=== PATIENT | female | born 1950 | race Caucasian/White ===

== ENCOUNTER 2017-06-04 11:55 | Inpatient (IN) | payer MEDICARE, OTHER ==
[~2017-06-04] VITALS: Ht 157.5 cm; Wt 84.4 kg
[~2017-06-04 11:55] MED LIST: ACAI500 MG PO; ASPIR-LOW81 MG PO; CALCIUM600 MG PO; FISH OIL 1,0001 EAC1 PO; KELP1 EACH PO; LEVOTHYROXINE75 MCG PO; NIACIN500 M1 PO; NORCO 7.5-3251 EACH PO; ULTRAM50 MG PO; VITAMIN D5000 UNIT PO
[2017-07-02] MEDS ORDERED: POTASSIUM99 M1 PO (15:22)
[2017-07-02] MEDS ORDERED: ADVIL200 MG PO (15:22)
[2017-07-02] MEDS ORDERED: HYDROCHLOROTHIA25 MG PO (15:23)
[2017-07-02] MEDS ORDERED: FISH OIL 1,0001 EACH PO (15:23)
[2017-07-02] MEDS ORDERED: VITAMIN D32000 UNI1 PO (15:23)
[2017-07-02] MEDS ORDERED: LOSARTAN POTAS100 MG PO (15:24)
[2017-07-02] MEDS ORDERED: LEVOTHYROXINE75 MCG PO (15:24)
[2017-07-02] MEDS ORDERED: VITAMIN B-50 C0.4 MG PO (15:25)
[2017-07-02] MEDS ORDERED: MAGNESIUM250 M1 PO (15:25)
[2017-07-02] MEDS ORDERED: LIPITOR10 MG PO (15:26)
[2017-07-02] MEDS ORDERED: ASPIR-LOW81 MG PO (15:26)
[2017-07-02] MEDS ORDERED: MELATONIN3 MG PO (15:27)
[2017-07-02] MEDS ORDERED: CO Q-10300 MG PO (15:27)
[2017-07-02] MEDS ORDERED: KELP1 EACH PO (15:27)
[2017-07-02] MEDS ORDERED: PRILOSEC OTC20 MG PO (15:28)
--- NOTE | 2017-07-11 10:31 | NUR ---
07/11/17 1031 Argelia Bryson 1019 PT ARRIVED IN PACU SLEEPY WITH NO C/O'S. GABRIEL PRESENT ON ARRIVAL WITH NEON YELLOW URINE. 1025 PT OCCASIONALLY ITCHING AT FACE. OXYGEN MASK REMOVED. SATS 95% ON RA.
--- NOTE | 2017-07-11 11:23 | NUR ---
pt arrived to floor from surgery. oriented to room and call light. pt denies pain. roberto in place. mo pad present. small amount of drainage on mo pad. will continue to monitor pt.
--- NOTE | 2017-07-11 14:01 | NUR ---
PATIENT SITTING UP IN BED. RN IN ROOM. NO OTHER NEEDS AT THIS TIME.
--- NOTE | 2017-07-11 15:51 | NUR ---
THIS AGRICULTURAL SCIENCE PROFESSOR ASSISTED RN WITH STANDING PATIENT. RN IN ROOM. PATIENT SITTING UP IN BED NOW. CALL LIGHT WITHIN REACH. NO OTHER NEEDS AT THIS TIME.
--- NOTE | 2017-07-11 15:52 | NUR ---
IN ROOM WITH PT. SAT PT AT EDGE OF BEDSIDE AND THEN TO STANDING POSITION. RESOURCE PARAPROFESSIONAL IN ROOM TO ASSIST. PT FELT LIGHTHEADED AND DIZZY BUT RECOVERED SLOWLY ONCE STANDING STILL. CHANGED DANIEL PAD WHILE PT WAS STANDING. SCANT AMOUNT OF SANGUINOUS DRAINAGE PRESENT. PT BACK TO BED. PT RATING PAIN 3/10 ONCE BACK IN BED. DENIES NEED FOR PAIN MEDICATION.
--- NOTE | 2017-07-11 17:28 | NUR ---
pt resting in bed eating dinner. rating pain 04/28. gave 1 tab norco 5/325 po.
--- NOTE | 2017-07-11 17:35 | NUR ---
PT HAD SURGERY TODAY. PT HAD SPINAL EPIDURAL. FULLY REGRESSED. GABRIEL IN PLACE. DANIEL PAD AND PACKING IN PLACE. SMALL AMOUNT OF DRAINAGE PRESENT ON DANIEL PAD. PT STOOD AT EDGE OF BED WITH ASSISTANCE. GABRIEL TO BE REMOVED IF ABLE TO AMBULATE IN AM.
--- NOTE | 2017-07-11 18:22 | NUR ---
PT UP AND AMBULATING IN ROOM WITH STANDBY ASSIST. PT STATED, "MY LEGS FEEL WEAK." RATED PAIN 3/10 IN ABDOMEN. DENIED NEED FOR FURTHER PAIN MEDICATION AT THIS TIME.
--- NOTE | 2017-07-11 18:38 | NUR ---
PATIENT SITTING UP IN BED. GABRIEL DRAINED. GARBAGE EMPTIED. VITALS AND I&Os DONE. PATIENT STATES SHE "FEELS SLIGHT DISCOMFORT, BUT MOSTLY ITCHY". RN NOTIFIED. CALL LIGHT WITHIN REACH. NO OTHER NEEDS AT THIS TIME.
--- NOTE | 2017-07-11 20:00 | NUR ---
RECEIVED REPORT AT 1900, FOUND PT IN BED. PT HAD NO NEEDS AND DENIED PAIN AT THAT TIME.
--- NOTE | 2017-07-11 22:00 | NUR ---
V/S ARE WDL, PT DENIES PAIN, PT HAS INTENSE ITCHING ALL OVER, SO FAR, 12.5MG IV BENADRYL WAS GIVEN. ABD SOUNDS ARE PRESENT, PT IS PASSING GAS, VAG BLEEDING IS MINIMAL SO FAR. URINE OUTPUT IS WDL. NO NEW CONCERNS AT THIS TIME. PT WAS EDUCATED ON DEEP BREATHING.
--- NOTE | 2017-07-12 | NUR ---
PT IS SLEEPING AT THIS TIME.
--- NOTE | 2017-07-12 02:00 | NUR ---
PT IS STILL ITCHING ALL OVER. I AM UNABLE TO GIVE HER ANY BENADRYL AT THIS TIME. PAIN IS 0/10.
--- NOTE | 2017-07-12 02:16 | NUR ---
VITALS AND I&OS DONE AND CHARTED. FRESH ICE WATER GIVEN. BEDSIDE TABLE AND CALL LIGHT WITHIN REACH.
--- NOTE | 2017-07-12 04:00 | NUR ---
PT IS SLEEPING.
--- NOTE | 2017-07-12 06:28 | NUR ---
V/S ARE WDL, PT HAS DENIED PAIN ALL SHIFT. PT HAD ITCHING FROM SPINAL AND HAS NEEDED PRN BENADRYL. ABD SOUNDS ARE PRESENT, PT IS PASSING GAS, THERE IS A SMALL AMOUNT OF BLOOD PRESENT ON PAD. URINE OUTPUT WITH GABRIEL WAS ADQUATE. PT AMBULATED TO BATHROOM AND BACK, GABRIEL D/C AT 0600. PT NEEDED SOME PRN O2 NC 2L WHILE SLEEPING THIS SHIFT. HER O2 SATS AT TIMES WERE 85-90% ON RA. NO NEW CONCERNS AT THIS TIME.
--- NOTE | 2017-07-12 08:58 | NUR ---
SET PATIENT'S SHOWER UP FOR HER ALSO GOT HER NEW ICE WATER 0810.
--- NOTE | 2017-07-12 09:53 | NUR ---
PATIENT VOIDING WELL WITH GOOD POST VOID RESIDUALS. NO COMPLAINTS OF APIN, ADMINISTERED 1 TAB NORCO AT BREAKFAST WITH FOOD. UP IN SHOWER NOW, APPEARS TO BE MOVING WELL.
[2017-07-12] MEDS ORDERED: TYLENOL325 MG PO (10:54)
--- NOTE | 2017-07-12 10:57 | NUR ---
MED REC COMPLETE
--- NOTE | 2017-07-12 12:09 | NUR ---
PATIENT AMBULATED IN HALLS, UP TO BATHROOM. CONTINUING POST VOID RESIDUALS, GOING WELL. PATIENT REQUESTED TO PUT OWN GOWN ON. CALL LIGHT WITHIN REACH, PATIENT INDEPENDANT IN ROOM. STATES " I AM FEELING OKAY TO GO HOME".
--- NOTE | 2017-07-12 13:14 | NUR ---
ROUNDED WITH DR. HOWELL, NEW ORDERS FOR DISCHARGE AND PVR COMPLETE. PATIENT VERBALIZED UNDERSTANDING, PAIN WELL CONTROLLED WITH NORCO. VS STABLE. PATIENT UP AMBULATING IN HALLS, TOLERATED WELL.
[2017-07-12] MEDS ORDERED: IBU800 MG PO (13:32)
[2017-07-12] MEDS ORDERED: NORCO 5-325 TA1 EACH PO (13:33)
[2017-07-12] MEDS ORDERED: SENOKOT-S TABL1 EACH PO (13:34)
[2017-07-12] MEDS ORDERED: KONDREMUL2.5 ML/5 M PO (13:35)
--- NOTE | 2017-07-12 14:33 | NUR ---
PT RESTING IN BED, WAITING FOR DC ORDERS SHE EXPECTS LATER THIS AFTERNOON. SHE MENTIONED THAT SHE IS READY TO SLEEP IN HER OWN BED, SEEMS PLEASED WITH CARE. I ENCOURAGED HER TO BE INFORMED SHE NEEDS TO BE DC INSTRUCTIONS ARE SHARED WITH HER. EXTENDED A BLESSING, WILL FOLLOW NEEDED
--- NOTE | 2017-07-12 15:39 | NUR ---
PATIENT RELAXING IN BED, APPEARS TO BE SLEEPING. D/C VITALS DONE, CALL LIGHT IN REACH NO OTHER NEEDS AT THIS TIME.
--- NOTE | 2017-07-12 16:45 | NUR ---
PROVIDED PATIENT WITH DISCHARGE EDUCATION, NO COMPLAINTS OF PAIN. ADMINISTERED 1 TAB NORCO BEFORE DISCHARGING FOR PAIN CONTROL. PATIENT VERBALIZED UNDERSTANDING. PATIENT ABLE TO REPEAT BACK S/S OF INFECTION, AND HOME CARE INSTRUCTION.
--- NOTE | 2017-07-30 08:11 | OR ---
[facility] [address], [place] [address] Signed DATE OF OPERATION: 07/11/2017 SURGEON: Tori Tejada MD OFFICE ADMIN: Quirino Martinez MD. PREOPERATIVE DIAGNOSES: Complete uterovaginal prolapse, stress incontinence. POSTOPERATIVE DIAGNOSES: Complete uterovaginal prolapse, stress incontinence. PROCEDURES: Total vaginal hysterectomy, uterosacral plication and cuff suspension, obturator sling, cystoscopy, rectocele repair with dermis reinforcement. ANESTHESIA: Spinal with IV sedation. ESTIMATED BLOOD LOSS: 100 mL. DRAINS: Chavez catheter. PACKS: Vaginal. INDICATIONS AND FINDINGS: The patient is a 66-year-old female, 3, para 3, who has not had a pelvic exam in over 25 years. She was noticing more and more prolapse and began having more difficulty emptying her bladder as well as urinary frequency. She also had some stress incontinence and had been prone to recent UTIs. She was found to have a complete uterovaginal prolapse. On discussion of her options, she wished to proceed with surgical intervention. At the time of surgery, she had a complete prolapse with the cervix visible, approximately 9 cm beyond the hymen. The tissue was quite cornified. There also appeared to be a cystocele and a rectocele, though it was difficult to completely ascertain given the degree of her prolapse. At the time of hysterectomy, she was noted to have a very long cervix of approximately 9 cm and a small uterus. The Electronically Signed By: TORI TEJADA MD 07/30/17 0811 PATIENT NAME: ANURADHA DELONG OPERATIVE REPORT DATE OF : 48 REPORT #: [id number] PHYSICIAN: TORI TEJADA MD PCP: ANGEL GONZALEZ REPORT IS CONFIDENTIAL AND NOT TO BE RELEASED WITHOUT AUTHORIZATION [facility] [address], [place] [address] Signed ovaries appeared normal. DESCRIPTION OF PROCEDURE: The patient was prepped and draped in the dorsal lithotomy position. A weighted speculum was placed in the posterior cul-de-sac, though the uterus was completely prolapsed. The cervix was grasped with thyroid clamps. The cervix was injected with 1% lidocaine with 1:200,000 epi to a volume of 10 mL. The posterior cul-de-sac was then attempted to be entered, but this was done with quite a bit of difficulty and the posterior cul-de-sac could not be entered. The decision was then made to proceed with anterior entry. The vaginal mucosa was circumscribed with a knife and sharp dissection was used and the anterior peritoneum was eventually identified quite high up on the cervix and was entered. The posterior cul-de-sac was then entered at that time as well. The curved Z clamps were used to grasp the uterosacral ligaments on each side, and these were divided and suture ligated with 0 Vicryl. The curved Z clamps were then used to come up in the cardinal ligament areas and the uterine vessel areas on each side with each of these pedicles divided with the Vigil scissors and suture ligated with 0 Vicryl. At this point, the broad ligament pedicles were remaining. Because of the width of this pedicle, a smaller bite was taken in the lower aspect of this with the curved Z clamps, divided with the Vigil scissors and suture ligated with 0 Vicryl. Following this, the remaining broad ligament pedicles on each side could be clamped with the curved Z clamps and divided. This was followed by free ties of 0 Vicryl and then suture ligatures of 0 Vicryl on the broad ligament pedicles. The cuff was then serially inspected and there were bleeding points near the uterine vessels on the right side, which were controlled with figure-of-8 sutures of 0 Vicryl. There was quite a bit of separation on the posterior peritoneum to the posterior cuff given the difficulty entering posteriorly and several [id number] were placed bringing the peritoneum close to the cuff. Good hemostasis was thus noted. Because of the degree of prolapse, uterosacral plication was done with interrupted sutures of 2-0 Ethibond. This was begun close to the cuff and 3 sutures were placed serially more superiorly in the abdomen. The last suture which was placed which was suture #4 incorporating the uterosacral ligaments, but also attached to the cuff within the abdomen and up through the opposite uterosacral ligament and this was tied shortening the uterosacral ligaments and suspending the cuff. Following this, angle sutures were placed using 0 Vicryl sutures. These were placed incorporating a small bit of the vagina exteriorizing the broad ligament pedicles coming across the peritoneum anteriorly and exiting via the uterosacral ligaments inferiorly. These were done bilaterally and tied laterally. The peritoneum was closed with a 3-0 Vicryl suture in a figure-of-8 manner. The cuff itself was closed in a running locking stitch of 0 Vicryl. Good hemostasis was noted. Following this, there was a small cystocele anteriorly, but there did not appear to be any real space to Electronically Signed By: TORI TEJADA MD 07/30/17 0811 PATIENT NAME: ANURADHA DELONG OPERATIVE REPORT DATE OF : 48 REPORT #: [id number] PHYSICIAN: TORI TEJADA MD PCP: ANGEL GONZALEZ REPORT IS CONFIDENTIAL AND NOT TO BE RELEASED WITHOUT AUTHORIZATION [facility] [address], [place] [address] Signed perform a cystocele repair given the need for the sling procedure. Because of this, an incision was made in the midline in the mid urethral area with a knife. Dissection was done undermining the vaginal mucosa laterally on each side such that a finger could be brought to the posterior aspect of the pubic rami on each side. Following this, the obturator notches were identified and incisions made. Trocars for the sling were then placed. These were placed at the lowest most medial portion of the obturator notch and brought immediately behind the pubic rami and out through the apex of the vaginal incision. At this point, cystoscopy was done. The patient had received IV fluorescein. The 70-degree scope was used. The bladder was filled and there was no evidence of any incursion of the trocars into the bladder. There was no evidence of any bladder injury. Clear fluorescein stained urine was seen to freely egress from both of the ureteral orifices. Following this, the bladder was drained and the Chavez catheter replaced. The sling was then attached to the trocars and brought through the skin incisions on each side keeping the sling in the midurethral area and with appropriate tension. The cover of the sling was removed and the excess sling material trimmed at the skin. The vaginal mucosa was closed with a running 2-0 Vicryl. The skin incisions were closed with 3-0 Vicryl Rapide. Rectocele repair was then begun. A triangle of tissue was removed from the perineal body. The vaginal mucosa was undermined and incised in the midline to the apex of the vagina. The vaginal mucosa was from the underlying tissue with a combination of blunt and sharp dissection. This was carried out to the ischial spines bilaterally. The Capio device using a 0 Vicryl suture was deployed in the midportion of the sacrospinous ligament on each side for use later. The perirectal fascial type tissue was then reapproximated with interrupted sutures of 0 Vicryl. A rectal examination was then done, which confirmed no sutures compromising the rectal lumen and good repair of the defect. Dermis, which had been prepared according to the package directions and trimmed into a [id number] shape was then sutured at the arms to the sacrospinous ligament sutures and tied with appropriate tension across the top of the vagina. The graft was then tacked into place with interrupted sutures of 2-0 Vicryl. A repeat rectal examination was done which again confirmed good reduction of the defect and no sutures compromising the rectal lumen. The vaginal mucosa was then trimmed quite a bit given the redundancy of tissue. The vaginal mucosa was closed with a running suture of 2-0 Vicryl from the apex of the vagina to the hymenal ring. Another figure-of-8 was required in the midportion for control of bleeding. The perineal body was reapproximated with interrupted sutures of 2-0 Vicryl. The fourchette was re-created with a running suture of 2-0 Vicryl. The skin of the perineum was closed with a subcuticular suture of the 2-0 Vicryl. Inspection of the vault showed good length and caliber. Good hemostasis was noted. The vaginal vault was then packed with Premarin coated gauze. All sponge and needle counts were correct. She tolerated the procedure well and was taken to the recovery room in good condition. Electronically Signed By: TORI TEJADA MD 07/30/17 0811 PATIENT NAME: ANURADHA DELONG OPERATIVE REPORT DATE OF : 48 REPORT #: [id number] PHYSICIAN: TORI TEJADA MD PCP: ANGEL GONZALEZ REPORT IS CONFIDENTIAL AND NOT TO BE RELEASED WITHOUT AUTHORIZATION [address] [place] [address] Signed Tori Tejada MD PJW/MODL /[id number] cc: MD Angel Campbell PA Copies: QUIRINO MARTINEZ MD, LINDA PA ~ Electronically Signed By: TORI TEJADA MD 07/30/17 0811 PATIENT NAME: ANURADHA DELONG OPERATIVE REPORT DATE OF : 48 REPORT #: [id number] PHYSICIAN: TORI TEJADA MD PCP: ANGEL GONZALEZ REPORT IS CONFIDENTIAL AND NOT TO BE RELEASED WITHOUT AUTHORIZATION
== END 2017-07-12 17:00 | disposition home or self-care (01) | DRG 743 ==
LOC: MS 07-11 05:40 → DSVR 07-11 05:40 → MS 07-11 06:45
PROVIDERS: ADMIT Obstetrics & Gynecology
PROC: 0UT97ZZ Resection of Uterus, Via Natural or Artificial Opening (ICD-10-PCS; principal; 2017-07-11 06:45)
PROC: 0TSD0ZZ Reposition Urethra, Open Approach (ICD-10-PCS; 2017-07-11 06:45)
PROC: 0JUC0KZ Supplement of Pelvic Region Subcutaneous Tissue and Fascia with Nonautologous Tissue Substitute, Open Approach (ICD-10-PCS; 2017-07-11 06:45)
DX: N81.3 Complete uterovaginal prolapse (principal); N39.3 Stress incontinence (female) (male); E03.9 Hypothyroidism, unspecified; I10 Essential (primary) hypertension; E78.00 Pure hypercholesterolemia, unspecified; K21.9 Gastro-esophageal reflux disease without esophagitis; E66.9 Obesity, unspecified; Z87.440 Personal history of urinary (tract) infections; Z68.34 Body mass index [BMI] 34.0-34.9, adult; Z79.1 Long term (current) use of non-steroidal anti-inflammatories (NSAID); Z79.82 Long term (current) use of aspirin; Z79.899 Other long term (current) drug therapy; Z88.2 Allergy status to sulfonamides
CPT/HCPCS: 00952; 36415; 80048; 85025; 88305; 94762; C1762; C1771; C2631; J0690; J0694; J1100; J1200; J1644; J2250; J2274; J2300; J2405; J2704; J7120